=== PATIENT | female | born 1960 | race Caucasian/White ===

== ENCOUNTER 2017-07-27 11:06 | Observation (INO) | payer OTHER, BC ==
[~2017-07-27] VITALS: Ht 162.6 cm; Wt 101.2 kg
[~2017-07-27 11:06] MED LIST: Amaryl PO; Duragesic TD; Ecotrin PO; Lipitor PO; OXYCONTIN40 MG PO; Paxil PO; Percocet 5/325,Endoc PO; Plaquenil PO; Protonix PO; Senokot S,Pericolace PO; Tenormin PO; Zestril,Prinivil PO
[2017-07-27 12:46] LABS: EOSINOPHIL (%) 1.4 % (0-5); EOSINOPHIL COUNT 0.1 K/uL (0-0.3); IMMATURE GRANULOCYTE (%) 0.4 % (0.0-0.7); INSTRUMENT ABS NEUTROPHIL CT 3.7 K/uL; MCH 29.9 PG (29.0-34.0); MCHC 33.6 G/DL (30.0-36.0); MEAN PLAT.VOLUME 9.1 uM^3 (9.5-12.4); MONOCYTE (%) 5.9 % (3-12); MONOCYTE COUNT 0.3 K/uL (0-0.8); NEUTROPHIL (%) 72.4 % (45-76); NEUTROPHIL COUNT 3.7 K/uL (1.8-6.4); PLATELET COUNT 188 K/uL (156-360); RBC DIS.WIDTH-CV 12.1 % (11.8-14.6); RBC DIS.WIDTH-SD 40.1 % (39-53); RED BLOOD COUNT 4.72 M/uL (3.80-5.20); WHITE BLOOD COUNT 5.1 K/uL (4.1-10.2)
[2017-07-27 12:53] LABS: PROTHROMBIN TIME 11.2 SEC (10.2-12.9)
[2017-07-27 12:55] LABS: D-DIMER ELISA < 150.00 ng/mLDDU (<230); PTT 24.5 SEC (25-37)
[2017-07-27 13:16] LABS: ANION GAP 9 MEQ/L (2-14); CHLORIDE 105 MEQ/L (99-109); GFR ESTIMATE (CALCULATED) > 59 mL/min/; GLUCOSE 124 mg/dL (70-99); POTASSIUM 4.5 MEQ/L (3.7-5.4); SAMPLE HEMOLYSIS CHECK 0; SAMPLE ICTERIC CHECK 0; SAMPLE LIPEMIA CHECK 0; SODIUM 139 MEQ/L (136-147); UREA NITROGEN (BUN) 15 mg/dL (9-23)
[2017-07-27 13:17] LABS: TROP-I INTERPRETATION NEGATIVE; TROPONIN-I < 0.01 ng/mL (0.0-0.30)
[2017-07-27] MEDS ORDERED: OXYCONTIN30 MG PO (14:30)
[2017-07-27] MEDS ORDERED: ATORVASTATIN CA80 MG PO (14:31)
[2017-07-27] MEDS ORDERED: SPIRONOLACTONE25 MG PO (14:35)
[2017-07-27] MEDS ORDERED: ADALAT CC 30 MG30 MG PO (14:36)
[2017-07-27] MEDS ORDERED: TENORMIN50 MG PO (14:39)
[2017-07-27] MEDS ORDERED: AMARYL2 MG PO (14:39)
[2017-07-27] MEDS ORDERED: PLAQUENIL200 MG PO (14:40)
[2017-07-27] MEDS ORDERED: PROTONIX40 MG PO (14:40)
[2017-07-27] MEDS ORDERED: PAXIL20 MG PO (14:40)
[2017-07-27] MEDS ORDERED: OXYCODONE-APAP1 EACH PO (14:41)
[2017-07-27] MEDS ORDERED: VITAMIN B12 100MCG PO (14:42)
[2017-07-27] MEDS ORDERED: VITAMIN D31000 UNIT PO (14:42)
[2017-07-27] MEDS ORDERED: FOLIC ACID1 MG PO (14:42)
[2017-07-27] MEDS ORDERED: LO-DOSE ASPIRIN81 M2 PO (14:44)
[2017-07-27 14:46] VITALS: BP 139/68
[2017-07-27 17:56] LABS: TROP-I INTERPRETATION NEGATIVE; TROPONIN-I < 0.01 ng/mL (0.0-0.30)
[2017-07-27 19:40] VITALS: BP 108/61
[2017-07-27 22:04] LABS: POINT-OF-CARE METER ID UU13113700
[2017-07-27 22:20] LABS: TROP-I INTERPRETATION NEGATIVE; TROPONIN-I < 0.01 ng/mL (0.0-0.30)
[2017-07-28 00:50] VITALS: BP 112/63
[2017-07-28 04:37] VITALS: BP 127/60
[2017-07-28 05:29] LABS: MCH 30.3 PG (29.0-34.0); MCHC 33.6 G/DL (30.0-36.0); MCV 90.3 FL (83-99); MEAN PLAT.VOLUME 9.2 uM^3 (9.5-12.4); PLATELET COUNT 166 K/uL (156-360); RBC DIS.WIDTH-CV 12.2 % (11.8-14.6); RBC DIS.WIDTH-SD 40.1 % (39-53); RED BLOOD COUNT 4.32 M/uL (3.80-5.20); WHITE BLOOD COUNT 5.3 K/uL (4.1-10.2)
[2017-07-28 05:53] LABS: ALKALINE PHOSPHATASE 32 IU/L (3-129); ANION GAP 8 MEQ/L (2-14); CHLORIDE 104 MEQ/L (99-109); GFR ESTIMATE (CALCULATED) > 59 mL/min/; GLUCOSE 121 mg/dL (70-99); HDL CHOLESTEROL 34 MG/DL (Desirable>=50); LDL CHOLESTEROL 39 mg/dL (Desirable<100); NON-HDL CHOLESTEROL 72 mg/dL (Desirable<160); POTASSIUM 4.3 MEQ/L (3.7-5.4); SAMPLE HEMOLYSIS CHECK 0; SAMPLE ICTERIC CHECK 0; SAMPLE LIPEMIA CHECK 0; SODIUM 140 MEQ/L (136-147); TOTAL BILIRUBIN 0.5 MG/DL (0.0-1.0); TOTAL CHOLESTEROL 106 mg/dL (Desirable<200); TRIGLYCERIDES 166 MG/DL (Normal: <150); UREA NITROGEN (BUN) 20 mg/dL (9-23)
[2017-07-28 07:59] VITALS: BP 106/62
[2017-07-28 11:57] VITALS: BP 117/70
== END 2017-07-28 13:22 | disposition home or self-care (01) ==
LOC: EME 11:06 → EDOF 13:51 → ENRESERV 13:54 → EDOF 13:57 → ENRESERV 14:02 → 5WEST 14:46
PROVIDERS: Emergency Medicine; Hospitalist
DX: R07.89 Other chest pain (principal); I10 Essential (primary) hypertension; I25.10 Atherosclerotic heart disease of native coronary artery without angina pectoris; I25.2 Old myocardial infarction; Z95.5 Presence of coronary angioplasty implant and graft; E78.5 Hyperlipidemia, unspecified; E11.9 Type 2 diabetes mellitus without complications; F17.200 Nicotine dependence, unspecified, uncomplicated; E66.9 Obesity, unspecified; M06.9 Rheumatoid arthritis, unspecified; K21.9 Gastro-esophageal reflux disease without esophagitis; Z79.4 Long term (current) use of insulin; Z79.84 Long term (current) use of oral hypoglycemic drugs; Z79.82 Long term (current) use of aspirin; Z79.899 Other long term (current) drug therapy; Z88.8 Allergy status to other drugs, medicaments and biological substances
CPT/HCPCS: 71010; 80048; 80053; 80061; 82948; 83735; 84484; 85025; 85027; 85379; 85610; 85730; 93005; G0378; J1650

== ENCOUNTER 2018-06-27 03:15 | Inpatient (IN) | payer OTHER, BC ==
[~2018-06-27] VITALS: Ht 162.6 cm; Wt 111.3 kg
[~2018-06-27 03:15] MED LIST changes: +ADALAT CC 30 MG30 MG PO; +AMARYL2 MG PO; +ATORVASTATIN CA80 MG PO; +FOLIC ACID1 MG PO; +LO-DOSE ASPIRIN81 M2 PO; +OXYCODONE-APAP1 EACH PO; +OXYCONTIN20 MG PO; +PAXIL20 MG PO; +PLAQUENIL200 MG PO; +PROTONIX40 MG PO; +SPIRONOLACTONE25 MG PO; +TENORMIN50 MG PO; +VITAMIN B12 100MCG PO; +VITAMIN D31000 UNIT PO
[2018-06-27 04:31] LABS: HEMATOCRIT 40.8 % (36.0-46.0); HEMOGLOBIN 14.1 G/DL (11.9-15.5); MCH 30.5 PG (29.0-34.0); MCHC 34.6 G/DL (30.0-36.0); MCV 88.1 FL (83-99); PLATELET COUNT 213 K/uL (156-360); RBC DIS.WIDTH-CV 12.4 % (11.8-14.6); RED BLOOD COUNT 4.63 M/uL (3.80-5.20); WHITE BLOOD COUNT 14.4 K/uL (4.1-10.2)
[2018-06-27 04:53] LABS: ALBUMIN 4.5 g/dL (3.2-4.8); CHLORIDE 103 mEq/L (99-109); POTASSIUM 4.1 mEq/L (3.7-5.4); SODIUM 138 mEq/L (136-147)
[2018-06-27 04:55] LABS: GLUCOSE 207 mg/dL (70-99)
[2018-06-27 04:57] LABS: TOTAL BILIRUBIN 0.5 mg/dL (0.0-1.0)
[2018-06-27 04:59] LABS: ALKALINE PHOSPHATASE 43 IU/L (3-129); GFR ESTIMATE (CALCULATED) > 59 mL/min/
[2018-06-27 05:00] LABS: UREA NITROGEN (BUN) 18 mg/dL (9-23)
[2018-06-27 05:01] LABS: AST (GOT) 20 IU/L (2-34)
[2018-06-27 05:02] LABS: ALT (GPT) 24 IU/L (3-49)
[2018-06-27 05:08] LABS: TROP-I INTERPRETATION NEGATIVE; TROPONIN-I < 0.01 ng/mL (0.0-0.30)
[2018-06-27] MEDS ORDERED: LISINOPRIL20 MG PO (08:14)
[2018-06-27] MEDS ORDERED: CYCLOBENZAPRINE10 MG PO (08:15)
[2018-06-27] MEDS ORDERED: METOPROLOL SUCC50 MG PO (08:16)
[2018-06-27 08:54] VITALS: BP 117/78
[2018-06-27 11:12] VITALS: BP 127/77
[2018-06-27 15:42] VITALS: BP 134/85
[2018-06-27 19:00] VITALS: BP 128/81
[2018-06-28 00:25] VITALS: BP 168/96
[2018-06-28 04:19] VITALS: BP 132/81
[2018-06-28 05:40] LABS: BASOPHIL (%) 0.3 % (0-1); BASOPHIL COUNT 0.1 K/uL (0-0.1); EOSINOPHIL (%) 0.5 % (0-5); EOSINOPHIL COUNT 0.1 K/uL (0-0.3); HEMATOCRIT 43.8 % (36.0-46.0); HEMOGLOBIN 14.4 G/DL (11.9-15.5); IMMATURE GRANULOCYTE (%) 0.4 % (0.0-0.7); LYMPHOCYTE (%) 11.8 % (15-42); MCH 29.6 PG (29.0-34.0); MCHC 32.9 G/DL (30.0-36.0); MCV 89.9 FL (83-99); MONOCYTE (%) 6.6 % (3-12); MONOCYTE COUNT 1.1 K/uL (0-0.8); NEUTROPHIL (%) 80.4 % (45-76); NEUTROPHIL COUNT 13.5 K/uL (1.8-6.4); PLATELET COUNT 249 K/uL (156-360); RBC DIS.WIDTH-CV 12.7 % (11.8-14.6); RBC DIS.WIDTH-SD 41.4 % (39-53); RED BLOOD COUNT 4.87 M/uL (3.80-5.20); WHITE BLOOD COUNT 16.8 K/uL (4.1-10.2)
[2018-06-28 06:06] LABS: CHLORIDE 101 MEQ/L (99-109); CREATININE 0.9 MG/DL (0.6-1.3); GFR ESTIMATE (CALCULATED) > 59 mL/min/; GLUCOSE 177 mg/dL (70-99); POTASSIUM 4.4 MEQ/L (3.7-5.4); SODIUM 136 MEQ/L (136-147); UREA NITROGEN (BUN) 16 mg/dL (9-23)
[2018-06-28 07:23] VITALS: BP 129/76
[2018-06-28 10:00] LABS: TROP-I INTERPRETATION NEGATIVE; TROPONIN-I < 0.01 ng/mL (0.0-0.30)
[2018-06-28 11:14] VITALS: BP 132/73
[2018-06-28 15:23] VITALS: BP 129/85
[2018-06-28 19:56] VITALS: BP 136/98
[2018-06-29] VITALS (7 sets, daily range): BP systolic 126–156; BP diastolic 75–89
[2018-06-29 04:09] LABS: O2 SATURATION (CALCULATED) 90.2 % (95-99); PCO2 38 mm Hg (35-45); PO2 54 mm Hg (80-100); pH 7.39 (7.35-7.45)
[2018-06-29 04:10] LABS: BASE EXCESS -1.6 mEq/L (-3 to +3); CARBOXY HGB 1.4 % (0-5); COMMENTS - BLOOD GASES C+; CONTINUOUS POS AIRWAY PRESSURE 10 cm H2O; DEVICE CPAP; METHEMOGLOBIN 0.7 % (0-1.5); O2 FLOW 7 L/MIN; SITE RR
[2018-06-29 05:12] LABS: CHLORIDE 101 mEq/L (99-109); POTASSIUM 4.3 mEq/L (3.7-5.4); SODIUM 132 mEq/L (136-147)
[2018-06-29 05:13] LABS: MAGNESIUM 1.9 mg/dL (1.3-2.7)
[2018-06-29 05:14] LABS: GLUCOSE 247 mg/dL (70-99)
[2018-06-29 05:17] LABS: CREATININE 0.9 mg/dL (0.6-1.3); GFR ESTIMATE (CALCULATED) > 59 mL/min/
[2018-06-29 05:18] LABS: UREA NITROGEN (BUN) 18 mg/dL (9-23)
[2018-06-29 05:26] LABS: HEMATOCRIT 42.3 % (36.0-46.0); HEMOGLOBIN 14.6 G/DL (11.9-15.5); MCH 30.5 PG (29.0-34.0); MCHC 34.5 G/DL (30.0-36.0); MCV 88.5 FL (83-99); PLATELET COUNT 229 K/uL (156-360); RBC DIS.WIDTH-CV 12.5 % (11.8-14.6); RBC DIS.WIDTH-SD 40.8 % (39-53); RED BLOOD COUNT 4.78 M/uL (3.80-5.20); WHITE BLOOD COUNT 23.7 K/uL (4.1-10.2)
[2018-06-29 09:36] LABS: INTER. NORMALIZED RATIO 1.2
[2018-06-29 09:39] LABS: PTT 23.5 SEC (25-37)
[2018-06-29 11:35] LABS: TYPE OF FLUID PLEURAL
[2018-06-29 12:18] LABS: BODY FLUID GLUCOSE 182 MG/DL; BODY FLUID LDH 1350 IU/L; BODY FLUID PROTEIN 5.3 G/DL
[2018-06-29 13:04] LABS: APPEARANCE CLOUDY; BODY FLUID EOSINOPHILS 0 % (0-25); BODY FLUID RBC'S 5000 /MM^3 (0-100); BODY FLUID WBC'S 28791 /MM^3 (0-500); MONONUCLEAR WBC'S 16 %; POLYNUCLEAR WBC'S 84 % (0-25)
[2018-06-30 03:43] VITALS: BP 127/79
[2018-06-30 05:44] LABS: HEMATOCRIT 38.1 % (36.0-46.0); HEMOGLOBIN 13.2 G/DL (11.9-15.5); MCH 30.6 PG (29.0-34.0); MCHC 34.6 G/DL (30.0-36.0); MCV 88.2 FL (83-99); PLATELET COUNT 214 K/uL (156-360); RBC DIS.WIDTH-CV 12.6 % (11.8-14.6); RBC DIS.WIDTH-SD 40.8 % (39-53); RED BLOOD COUNT 4.32 M/uL (3.80-5.20); WHITE BLOOD COUNT 23.8 K/uL (4.1-10.2)
[2018-06-30 06:10] LABS: CHLORIDE 100 MEQ/L (99-109); CREATININE 0.8 MG/DL (0.6-1.3); GFR ESTIMATE (CALCULATED) > 59 mL/min/; GLUCOSE 258 mg/dL (70-99); MAGNESIUM 2.1 mg/dl (1.3-2.7); POTASSIUM 3.9 MEQ/L (3.7-5.4); SODIUM 137 MEQ/L (136-147); UREA NITROGEN (BUN) 23 mg/dL (9-23)
[2018-06-30 07:41] VITALS: BP 145/80
[2018-06-30 09:06] LABS: LACTATE DEHYDROGENASE 199 IU/L (20-246)
[2018-06-30 12:24] VITALS: BP 107/64
[2018-06-30 17:49] VITALS: BP 120/77
[2018-06-30 19:24] VITALS: BP 117/73
[2018-06-30 23:03] VITALS: BP 121/65
[2018-07-01 03:21] VITALS: BP 110/70
[2018-07-01 05:44] LABS: HEMATOCRIT 38.6 % (36.0-46.0); HEMOGLOBIN 12.9 G/DL (11.9-15.5); MCH 30.2 PG (29.0-34.0); MCHC 33.4 G/DL (30.0-36.0); MCV 90.4 FL (83-99); PLATELET COUNT 230 K/uL (156-360); RBC DIS.WIDTH-CV 12.7 % (11.8-14.6); RED BLOOD COUNT 4.27 M/uL (3.80-5.20); WHITE BLOOD COUNT 19.3 K/uL (4.1-10.2)
[2018-07-01 06:05] LABS: CHLORIDE 105 MEQ/L (99-109); CREATININE 0.9 MG/DL (0.6-1.3); GFR ESTIMATE (CALCULATED) > 59 mL/min/; GLUCOSE 182 mg/dL (70-99); MAGNESIUM 2.2 mg/dl (1.3-2.7); POTASSIUM 3.8 MEQ/L (3.7-5.4); SODIUM 138 MEQ/L (136-147); UREA NITROGEN (BUN) 28 mg/dL (9-23)
[2018-07-01 07:23] VITALS: BP 108/74
[2018-07-01 11:25] VITALS: BP 101/62
[2018-07-01 17:23] VITALS: BP 118/74
[2018-07-01 19:12] VITALS: BP 99/56
[2018-07-01 23:54] VITALS: BP 131/87
[2018-07-02 03:36] VITALS: BP 118/84
[2018-07-02 06:13] LABS: ALBUMIN 3.9 G/DL (3.2-4.8); ALKALINE PHOSPHATASE 47 IU/L (3-129); ALT (GPT) 24 IU/L (3-49); AST (GOT) 24 IU/L (2-34); CHLORIDE 104 MEQ/L (99-109); CREATININE 0.9 MG/DL (0.6-1.3); GFR ESTIMATE (CALCULATED) > 59 mL/min/; GLUCOSE 207 mg/dL (70-99); SODIUM 135 MEQ/L (136-147); TOTAL BILIRUBIN 0.7 MG/DL (0.0-1.0); TOTAL PROTEIN 6.3 G/DL (6.4-8.3); UREA NITROGEN (BUN) 27 mg/dL (9-23)
[2018-07-02 06:17] LABS: POTASSIUM 4.7 MEQ/L (3.7-5.4)
[2018-07-02 06:22] LABS: BASOPHIL (%) 0.2 % (0-1); BASOPHIL COUNT 0.1 K/uL (0-0.1); EOSINOPHIL (%) 0.4 % (0-5); EOSINOPHIL COUNT 0.1 K/uL (0-0.3); HEMATOCRIT 44.9 % (36.0-46.0); IMMATURE GRANULOCYTE (%) 0.8 % (0.0-0.7); LYMPHOCYTE (%) 5.4 % (15-42); LYMPHOCYTE COUNT 1.8 K/uL (1.0-2.8); MCH 30.5 PG (29.0-34.0); MCHC 33.9 G/DL (30.0-36.0); MONOCYTE (%) 5.4 % (3-12); MONOCYTE COUNT 1.8 K/uL (0-0.8); NEUTROPHIL (%) 87.8 % (45-76); NEUTROPHIL COUNT 28.7 K/uL (1.8-6.4); PLATELET COUNT 299 K/uL (156-360); RBC DIS.WIDTH-CV 12.5 % (11.8-14.6); RBC DIS.WIDTH-SD 41.1 % (39-53); RED BLOOD COUNT 4.99 M/uL (3.80-5.20)
[2018-07-02 06:40] LABS: HEMOGLOBIN 15.2 G/DL (11.9-15.5); WHITE BLOOD COUNT 32.7 K/uL (4.1-10.2)
[2018-07-02 08:23] VITALS: BP 138/91
[2018-07-02 12:00] VITALS: BP 123/74
[2018-07-02 19:46] VITALS: BP 138/100
[2018-07-02 22:55] LABS: APPEARANCE SL.HAZY ((CLEAR)); BILIRUBIN NEGATIVE; BLOOD NEGATIVE; COLOR YELLOW ((YELLOW)); GLUCOSE (STRIP) NEGATIVE; KETONES NEGATIVE; LEUKOCYTES NEGATIVE; NITRITE NEGATIVE; PROTEIN (STRIP) NEGATIVE; SPECIFIC GRAVITY 1.051 (1.000-1.030); UROBILINOGEN 0.2 MG/DL (0.2-1.0)
[2018-07-02 23:01] LABS: BACTERIA NONE SEEN /HPF; EPITHELIAL CELLS 1+ /HPF; MUCUS TRACE /LPF; UCUL ADDED? NO; WHITE BLOOD CELLS 0-5 /HPF (0-5)
[2018-07-02 23:46] VITALS: BP 138/99
[2018-07-03] VITALS (7 sets, daily range): BP systolic 112–181; BP diastolic 70–91
[2018-07-03 06:09] LABS: HEMATOCRIT 45.2 % (36.0-46.0); HEMOGLOBIN 15.1 G/DL (11.9-15.5); MCH 30.1 PG (29.0-34.0); MCHC 33.4 G/DL (30.0-36.0); PLATELET COUNT 353 K/uL (156-360); RBC DIS.WIDTH-CV 12.5 % (11.8-14.6); RBC DIS.WIDTH-SD 40.9 % (39-53); RED BLOOD COUNT 5.02 M/uL (3.80-5.20)
[2018-07-03 06:17] LABS: ALBUMIN 3.7 G/DL (3.2-4.8); ALKALINE PHOSPHATASE 50 IU/L (3-129); ALT (GPT) 20 IU/L (3-49); AST (GOT) 16 IU/L (2-34); CHLORIDE 101 MEQ/L (99-109); CREATININE 1.2 MG/DL (0.6-1.3); GFR ESTIMATE (CALCULATED) 49 mL/min/; GLUCOSE 208 mg/dL (70-99); SODIUM 133 MEQ/L (136-147); TOTAL BILIRUBIN 0.7 MG/DL (0.0-1.0); TOTAL PROTEIN 6.3 G/DL (6.4-8.3); UREA NITROGEN (BUN) 34 mg/dL (9-23)
[2018-07-03 06:39] LABS: WHITE BLOOD COUNT 38.9 K/uL (4.1-10.2)
[2018-07-03 06:47] LABS: BASOPHIL (%) 0.3 % (0-1); BASOPHIL COUNT 0.1 K/uL (0-0.1); EOSINOPHIL (%) 0 % (0-5); IMMATURE GRANULOCYTE (%) 1.4 % (0.0-0.7); LYMPHOCYTE (%) 4.2 % (15-42); LYMPHOCYTE COUNT 1.6 K/uL (1.0-2.8); MONOCYTE (%) 4.3 % (3-12); MONOCYTE COUNT 1.7 K/uL (0-0.8); NEUTROPHIL (%) 89.8 % (45-76); NEUTROPHIL COUNT 34.9 K/uL (1.8-6.4)
[2018-07-03 11:37] LABS: COMMENTS - BLOOD GASES A+C+; CONTINUOUS POS AIRWAY PRESSURE 10 cm H2O; DEVICE CPAP; O2 FLOW 10 L/MIN; PCO2 37 mm Hg (35-45); PO2 70 mm Hg (80-100); SITE RR; TOTAL RESP RATE 20 resp/min; pH 7.37 (7.35-7.45)
[2018-07-03 11:38] LABS: BASE EXCESS -3.3 mEq/L (-3 to +3); BICARBONATE 21.4 mEq/L (22-26); CARBOXY HGB 1.4 % (0-5); METHEMOGLOBIN 1.2 % (0-1.5)
[2018-07-03 15:34] LABS: QGTB-NIL 0.08 IU/mL (()); QUANTIFERON TB GOLD NEGATIVE (Negative); TB AG-NIL <0.00 IU/mL (())
[2018-07-03 17:36] LABS: TYPE OF FLUID PLEURAL
[2018-07-03 18:09] LABS: BODY FLUID GLUCOSE 144 MG/DL; BODY FLUID LDH 950 IU/L; BODY FLUID PROTEIN 4.7 G/DL
[2018-07-03 18:18] LABS: APPEARANCE BLOODY; BODY FLUID EOSINOPHILS 0 % (0-25); BODY FLUID RBC'S 37000 /MM^3 (0-100); BODY FLUID WBC'S 9638 /MM^3 (0-500); MONONUCLEAR WBC'S 15 %; POLYNUCLEAR WBC'S 85 % (0-25)
[2018-07-04] VITALS (16 sets, daily range): BP systolic 108–128; BP diastolic 72–92
[2018-07-04 15:18] LABS: CREATININE 0.8 MG/DL (0.6-1.3); GFR ESTIMATE (CALCULATED) > 59 mL/min/; VANCOMYCIN, TROUGH 12.7 MCG/ML (10-20)
[2018-07-04 20:51] LABS: BODY FLUID PH 7.4 (())
[2018-07-05] VITALS (20 sets, daily range): BP systolic 92–153; BP diastolic 63–94
[2018-07-05 06:05] LABS: BASOPHIL (%) 0.2 % (0-1); EOSINOPHIL (%) 0.4 % (0-5); EOSINOPHIL COUNT 0.1 K/uL (0-0.3); HEMATOCRIT 34.8 % (36.0-46.0); IMMATURE GRANULOCYTE (%) 2.1 % (0.0-0.7); LYMPHOCYTE (%) 4.2 % (15-42); LYMPHOCYTE COUNT 0.9 K/uL (1.0-2.8); MCH 30.2 PG (29.0-34.0); MCHC 34.5 G/DL (30.0-36.0); MCV 87.4 FL (83-99); MONOCYTE COUNT 1.5 K/uL (0-0.8); NEUTROPHIL (%) 86.1 % (45-76); NEUTROPHIL COUNT 18.4 K/uL (1.8-6.4); RBC DIS.WIDTH-CV 12.3 % (11.8-14.6); RBC DIS.WIDTH-SD 39.8 % (39-53); WHITE BLOOD COUNT 21.4 K/uL (4.1-10.2)
[2018-07-05 06:09] LABS: RED BLOOD COUNT 3.98 M/uL (3.80-5.20)
[2018-07-05 06:19] LABS: CHLORIDE 105 MEQ/L (99-109); CREATININE 0.7 MG/DL (0.6-1.3); GFR ESTIMATE (CALCULATED) > 59 mL/min/; GLUCOSE 171 mg/dL (70-99); POTASSIUM 4.2 MEQ/L (3.7-5.4); SODIUM 135 MEQ/L (136-147); UREA NITROGEN (BUN) 27 mg/dL (9-23)
[2018-07-05 07:10] LABS: PLAT.SUFFICIENCY ADEQUATE
[2018-07-05 07:16] LABS: PLATELET COUNT 218 K/uL (156-360)
[2018-07-06 03:53] VITALS: BP 108/64
[2018-07-06 14:00] VITALS: BP 114/70
[2018-07-06 16:26] VITALS: BP 132/85
[2018-07-06 16:57] VITALS: BP 131/85
[2018-07-06 22:00] VITALS: BP 121/60
[2018-07-06 23:10] VITALS: BP 121/60
[2018-07-07 03:00] VITALS: BP 128/76
[2018-07-07 07:28] VITALS: BP 121/66
[2018-07-07 11:38] VITALS: BP 109/59
[2018-07-07 15:00] VITALS: BP 102/56
[2018-07-07 20:15] VITALS: BP 121/60
[2018-07-07 23:43] VITALS: BP 121/64
[2018-07-08 03:02] VITALS: BP 98/58
[2018-07-08 05:49] LABS: HEMATOCRIT 30.3 % (36.0-46.0); HEMOGLOBIN 10.3 G/DL (11.9-15.5); MCH 30.5 PG (29.0-34.0); MCV 89.6 FL (83-99); PLATELET COUNT 183 K/uL (156-360); RBC DIS.WIDTH-CV 12.6 % (11.8-14.6); RED BLOOD COUNT 3.38 M/uL (3.80-5.20); WHITE BLOOD COUNT 6.2 K/uL (4.1-10.2)
[2018-07-08 06:19] LABS: CHLORIDE 107 MEQ/L (99-109); CREATININE 0.7 MG/DL (0.6-1.3); GFR ESTIMATE (CALCULATED) > 59 mL/min/; GLUCOSE 129 mg/dL (70-99); SODIUM 140 MEQ/L (136-147); UREA NITROGEN (BUN) 8 mg/dL (9-23)
[2018-07-08 06:20] LABS: POTASSIUM 3.3 MEQ/L (3.7-5.4)
[2018-07-08 06:59] VITALS: BP 117/68
[2018-07-08 11:00] VITALS: BP 130/82
[2018-07-08 15:04] VITALS: BP 125/65
[2018-07-08 20:07] VITALS: BP 123/65
[2018-07-09] VITALS (7 sets, daily range): BP systolic 107–124; BP diastolic 59–82
[2018-07-09 05:59] LABS: CHLORIDE 106 MEQ/L (99-109); CREATININE 0.7 MG/DL (0.6-1.3); GFR ESTIMATE (CALCULATED) > 59 mL/min/; GLUCOSE 144 mg/dL (70-99); POTASSIUM 3.7 MEQ/L (3.7-5.4); SODIUM 138 MEQ/L (136-147); UREA NITROGEN (BUN) 8 mg/dL (9-23)
[2018-07-10 04:30] VITALS: BP 114/70
[2018-07-10 07:18] VITALS: BP 112/57
[2018-07-10 11:31] VITALS: BP 123/67
[2018-07-10 17:24] VITALS: BP 122/65
[2018-07-10 19:30] VITALS: BP 133/73
[2018-07-10 23:00] VITALS: BP 115/72
[2018-07-11 03:45] VITALS: BP 108/58
[2018-07-11 07:22] VITALS: BP 118/57
[2018-07-11 08:37] LABS: BASOPHIL (%) 0.4 % (0-1); EOSINOPHIL (%) 2.8 % (0-5); EOSINOPHIL COUNT 0.2 K/uL (0-0.3); HEMATOCRIT 30.8 % (36.0-46.0); HEMOGLOBIN 10.6 G/DL (11.9-15.5); IMMATURE GRANULOCYTE (%) 0.9 % (0.0-0.7); LYMPHOCYTE (%) 10.2 % (15-42); LYMPHOCYTE COUNT 0.6 K/uL (1.0-2.8); MCH 30.6 PG (29.0-34.0); MCHC 34.4 G/DL (30.0-36.0); MONOCYTE (%) 10.2 % (3-12); MONOCYTE COUNT 0.6 K/uL (0-0.8); NEUTROPHIL (%) 75.5 % (45-76); NEUTROPHIL COUNT 4.1 K/uL (1.8-6.4); PLATELET COUNT 174 K/uL (156-360); RBC DIS.WIDTH-CV 13.2 % (11.8-14.6); RED BLOOD COUNT 3.46 M/uL (3.80-5.20); WHITE BLOOD COUNT 5.4 K/uL (4.1-10.2)
[2018-07-11 09:02] LABS: CHLORIDE 109 MEQ/L (99-109); CREATININE 1.4 MG/DL (0.6-1.3); GFR ESTIMATE (CALCULATED) 41 mL/min/; GLUCOSE 139 mg/dL (70-99); POTASSIUM 3.7 MEQ/L (3.7-5.4); SODIUM 141 MEQ/L (136-147); UREA NITROGEN (BUN) 10 mg/dL (9-23)
[2018-07-11 11:00] VITALS: BP 112/71
[2018-07-11 16:46] VITALS: BP 114/66
[2018-07-11 19:00] VITALS: BP 132/65
[2018-07-11 23:00] VITALS: BP 124/74
[2018-07-12 04:00] VITALS: BP 117/62
[2018-07-12 07:35] VITALS: BP 115/66
[2018-07-12 12:00] VITALS: BP 122/69
[2018-07-12 16:10] VITALS: BP 121/68
[2018-07-12 21:12] VITALS: BP 131/72
[2018-07-13] VITALS (7 sets, daily range): BP systolic 108–124; BP diastolic 55–75
[2018-07-13 07:55] LABS: CREATININE 1.7 MG/DL (0.6-1.3)
[2018-07-14 04:00] VITALS: BP 111/64
[2018-07-14 08:45] VITALS: BP 123/68
[2018-07-14 11:44] VITALS: BP 121/68
[2018-07-14 16:09] VITALS: BP 118/85
[2018-07-14] MEDS ORDERED: LEVOFLOXACIN750 MG PO (17:45)
[2018-07-14] MEDS ORDERED: FLORASTOR250 MG PO (17:45)
[2018-07-14] MEDS ORDERED: SPIRIVA RESPIMAT4 GM IH (17:45)
== END 2018-07-14 20:14 | disposition home health service (06) | DRG 193 ==
LOC: EME 03:15 → EDOF 07:41 → ENRESERV 07:42 → 4SOUTH 08:44 → 4WEST 06-28 10:24 → 4EAST 06-28 10:24 → 4SOUTH 06-28 10:24 → ENRESERV 06-29 04:23 → 4EAST 06-29 05:27 → ENRESERV 07-03 08:04 → 4EAST 07-03 18:13 → ENRESERV 07-03 18:25 → 4WEST 07-03 19:56 → ENRESERV 07-06 19:40 → 4EAST 07-06 21:45
PROVIDERS: Emergency Medicine; Hospitalist; Internal Medicine; Internal Medicine Critical Care Medicine; Nurse Practitioner Adult Health; Nurse Practitioner Family; Thoracic Surgery (Cardiothoracic Vascular Surgery)
PROC: 5A09357 Assistance with Respiratory Ventilation, Less than 24 Consecutive Hours, Continuous Positive Airway Pressure (ICD-10-PCS; principal; 2018-06-28)
PROC: 0W993ZZ Drainage of Right Pleural Cavity, Percutaneous Approach (ICD-10-PCS; 2018-06-29)
PROC: 0W993ZZ Drainage of Right Pleural Cavity, Percutaneous Approach (ICD-10-PCS; 2018-07-03)
PROC: 0BCN4ZZ Extirpation of Matter from Right Pleura, Percutaneous Endoscopic Approach (ICD-10-PCS; 2018-07-04)
DX: J15.9 Unspecified bacterial pneumonia (principal); J44.0 Chronic obstructive pulmonary disease with (acute) lower respiratory infection; J91.8 Pleural effusion in other conditions classified elsewhere; J96.01 Acute respiratory failure with hypoxia; J86.9 Pyothorax without fistula; M06.89 Other specified rheumatoid arthritis, multiple sites; J98.11 Atelectasis; E11.65 Type 2 diabetes mellitus with hyperglycemia; E11.43 Type 2 diabetes mellitus with diabetic autonomic (poly)neuropathy; K31.84 Gastroparesis; E87.2 Acidosis; G47.33 Obstructive sleep apnea (adult) (pediatric); R91.1 Solitary pulmonary nodule; I10 Essential (primary) hypertension; I25.10 Atherosclerotic heart disease of native coronary artery without angina pectoris; E03.9 Hypothyroidism, unspecified; K21.9 Gastro-esophageal reflux disease without esophagitis; K22.70 Barrett's esophagus without dysplasia; M65.89 Other synovitis and tenosynovitis, multiple sites; M19.90 Unspecified osteoarthritis, unspecified site; D64.9 Anemia, unspecified; E66.01 Morbid (severe) obesity due to excess calories; Z68.41 Body mass index [BMI] 40.0-44.9, adult; E78.5 Hyperlipidemia, unspecified; G43.909 Migraine, unspecified, not intractable, without status migrainosus; M79.7 Fibromyalgia; G89.29 Other chronic pain; M54.5 Low back pain; I25.2 Old myocardial infarction; Z87.891 Personal history of nicotine dependence; Z85.42 Personal history of malignant neoplasm of other parts of uterus; Z90.710 Acquired absence of both cervix and uterus; Z92.3 Personal history of irradiation; Z79.82 Long term (current) use of aspirin; Z79.84 Long term (current) use of oral hypoglycemic drugs; Z79.891 Long term (current) use of opiate analgesic; Z79.899 Other long term (current) drug therapy
CPT/HCPCS: 36600; 71045; 71046; 71250; 71260; 76942; 80048; 80053; 80202; 81003; 82565; 82945; 82948; 83036; 83605; 83615; 83615 91; 83735; 83880; 83986 90; 84157; 84484; 85025; 85027; 85379; 85610; 85730; 86480 90; 87040; 87070; 87075; 87102; 87116; 87205; 87206; 87506; 87641; 87899; 88108; 88305; 89051; 93005; 94640; 94660; 94669; 94760; 94799; 97530 GO; 97530 GP; 99281; 99285; C1753; G0378; J0330; J1170; J1644; J1815; J1956; J2270; J2405; J2543; J2550; J2710; J2930; J3010; J3370; J7030; J7050; J7120; J7643